=== PATIENT | male | born 1950 | race Caucasian/White ===

== ENCOUNTER → 2017-06-11 | Outpatient (CLI) | payer OTHER ==
[~2017-06-11] VITALS: Ht 165.1 cm; Wt 65.8 kg
[~2017-06-11] MED LIST: AMBIEN 5 MG TABL5 M1 PO; ASPIRIN EC81 M1 PO; FISH OIL 1,0001 EAC5 PO; KEFLEX250 MG PO; LIPITOR20 MG; LIPITOR80 MG PO; PHENERGAN 25 MG25 M1 PO; SIMVASTATIN40 MG PO; XANAX 0.25 MG0.25 MG PO; ZOFRAN ODT4 MG PO
--- NOTE | ~2017-06-11 | S ---
[facility] [place] [address] SURGICAL PATH RPT PROCEDURE Name: SHAW GONZALEZ Mary Ann Room #: REG [facility]#: [id number] Admission: 06/11/17 Date of : 54 Discharge: Report #: [id number] Path Case #: [id number] PATHOLOGY REPORT COLLECTION DATE: 06/11/2017 RECEIVED DATE: 06/11/2017 SUBMITTING PHYS: Dr. Fito Cosby OTHER PHYS: Dr. Gavin Talavera SPECIMEN(S) RECEIVED: A.Possible polyp in ascending colon B.Polyp at rectum * * * * * * * * * * * * FINAL DIAGNOSIS: A. Polyp, ascending colon, endoscopic biopsy: - Hyperplastic polyp. - Negative for dysplasia. B. Polyp, rectal polyp, endoscopic biopsy: - Hyperplastic polyp. - Negative for dysplasia. (IUV:laurel; 06/12/2017) PATHOLOGIST: Adwoa Peguero M.D. REPORT ELECTRONICALLY SIGNED BY: Adwoa Peguero M.D. DATE/TIME: 06/12/2017 15:39 * * * * * * * * * * * * GROSS PATHOLOGY: A. Received in formalin labeled "Shaw Gonzalez, possible polyp in ascending colon" and consists of 6 douglas mucosal biopsies ranging in size a 0.1 cm-0.3 cm. The specimen is entirely submitted A1. B. Received in formalin labeled Shaw Gonzalez, rectal polyp" and consists of 2 douglas mucosal biopsies each averaging 0.3 cm. The specimen is entirely submitted as B1. (DEX; 06/11/2017) CLINICAL HISTORY: Screening, diverticulosis, possible polyp INITIAL CPT CODE(S): A; 49429 B; 83697 Professional services performed by [facility] at [facility] [address] , [place] [address] [facility] [address] [place] [address] SURGICAL PATH RPT PROCEDURE Name: SHAW GONZALEZ Room #: REG [facility]#: [id number] Admission: 06/11/17 Date of : 54 Discharge: Report #: [id number] Path Case #: [id number] [facility] by [facility] at [address] [place] [address], [place] [address]. [facility] [address] [place] [address] PHONE: [phone] DIRECTOR: Jimmie Murray M.D. * * * END OF REPORT * * *
--- NOTE | ~2017-06-11 | P ---
[facility] [place] [address] PROCEDURE REPORT Name: SHAW BARRAGAN Room #: REG [facility]#: [id number] Admission: 06/11/17 Attend Phys: Fito Barfield Discharge: Date of : 54 Report #: [id number] THIS REPORT FOR: //name// CC: Fito Dan MD DATE OF SERVICE: 06/11/2017 PROCEDURE PERFORMED: Colonoscopy with biopsies. HISTORY OF PRESENT ILLNESS: The patient is a 67-year-old male who presents today for routine screening colonoscopy. He denies any symptoms. No family history of colon cancer. DESCRIPTION OF PROCEDURE: The risks and benefits of the procedure were explained to the patient, those risks including but not limited to bleeding, perforation, the risk of sedation. He understood these risks and gave informed consent. Sedation was given using propofol per anesthesia. Next, a digital rectal exam was initially performed, which was normal. Next, using is a standard Fujinon colonoscope, the scope was placed in the patient's anus and advanced under direct vision to the cecum. The overall prep was excellent. The cecum and ileocecal valve were normal in appearance. A few scattered diverticula were noted in the ascending colon, a possible polyp was noted, 5 mm in size. Biopsies were obtained. The transverse and descending colon were normal. Multiple diverticula were noted in the sigmoid colon, otherwise normal. In the rectum, there was a 4 mm sessile polyp. This was removed with cold forceps. On retroflexion, no abnormalities were noted. The scope was then withdrawn and the procedure terminated. The patient tolerated the procedure well. IMPRESSION: 1. Two small colonic polyps. 2. Diverticulosis involving the ascending and sigmoid colon. 3. Otherwise, normal colonoscopy. RECOMMENDATIONS: 1. Await biopsy results. 2. If polyps are hyperplastic, repeat colonoscopy in 10 years. If either polyp is adenomatous, repeat in 5 years. [facility] [address] [place] [address] PROCEDURE REPORT Name: YUNGSHAW Room #: [facility]#: [id number] Admission: 06/11/17 Attend Phys: Fito Barfield Discharge: Date of : 54 Report #: [id number] Thank you for allowing me to participate in his care. <ELECTRONICALLY SIGNED> By: Fito Cosby MD 06/11/17 [id number] Fito Cosby MD /nt
== END | disposition home or self-care (01) ==
LOC: GI 07:02
DX: Z12.11 Encounter for screening for malignant neoplasm of colon (principal); K63.5 Polyp of colon; K57.30 Diverticulosis of large intestine without perforation or abscess without bleeding; E78.5 Hyperlipidemia, unspecified; F41.8 Other specified anxiety disorders; Z95.0 Presence of cardiac pacemaker; Z87.891 Personal history of nicotine dependence; Z98.890 Other specified postprocedural states; Z79.899 Other long term (current) drug therapy; Z79.82 Long term (current) use of aspirin
CPT/HCPCS: 62110; 62900

== ENCOUNTER → 2019-11-26 | Outpatient (CLI) | payer OTHER | LOC: SJCVC 09:55 | PROVIDERS: ATTEND Internal Medicine | DX: Z45.018 Encounter for adjustment and management of other part of cardiac pacemaker (principal); R00.1 Bradycardia, unspecified; E78.5 Hyperlipidemia, unspecified; R55 Syncope and collapse; Z79.82 Long term (current) use of aspirin; Z82.49 Family history of ischemic heart disease and other diseases of the circulatory system; Z79.899 Other long term (current) drug therapy; Z87.891 Personal history of nicotine dependence ==

== ENCOUNTER → 2021-03-07 | Outpatient (CLI) | payer OTHER | LOC: SJCVC 09:53 | PROVIDERS: ATTEND Internal Medicine | DX: R94.31 Abnormal electrocardiogram [ECG] [EKG] (principal); R00.1 Bradycardia, unspecified; I51.7 Cardiomegaly; F41.9 Anxiety disorder, unspecified; G47.00 Insomnia, unspecified; Z79.82 Long term (current) use of aspirin; Z79.899 Other long term (current) drug therapy; Z72.89 Other problems related to lifestyle; Z87.891 Personal history of nicotine dependence ==